=== PATIENT | male | born 1935 | race Caucasian/White ===

== ENCOUNTER 2019-08-12 08:46 | Emergency (ER) | payer MEDICARE, OTHER ==
[~2019-08-12] VITALS: Ht 170.2 cm; Wt 71.4 kg
[~2019-08-12 08:46] MED LIST: ASPI-1264 PO; CHOL100025 PO; FOLI-62 PO; GLYB2.5T4 PO; LOSA50TA3 PO; METO25TA6 PO; NITR0.4T SL; PANT-47 PO; SIMV-42 PO; TICA90TA PO
--- NOTE | 2019-08-12 09:02 | NUR ---
Patient is at CT
[2019-08-12 09:28] LABS: BASOPHILS % (AUTO) 0.3 % (0-1); EOSINOPHILS % (AUTO) 0.7 % (0-6); HEMATOCRIT 45.6 % (42.0-52.0); HEMOGLOBIN 15.3 g/dl (14.0-17.9); LYMPHOCYTES % (AUTO) 18.5 % (21-51); MEAN CORPUSCULAR HEMOGLOBIN 29.6 PG (27.0-31.0); MEAN CORPUSCULAR HGB CONC 33.6 g/dL (33.0-36.5); MEAN CORPUSCULAR VOLUME 88.2 FL (78-98); MONOCYTES # (AUTO) 0.5 X10'3 (0-0.9); MONOCYTES % (AUTO) 10.3 % (2-12); NEUTROPHILS # (AUTO) 3.6 X10'3 (1.8-7.7); NEUTROPHILS % (AUTO) 70.2 % (42-75); PLATELET COUNT 143 X10'3 (140-440); RED BLOOD COUNT 5.17 X10'6 (4.70-6.10); RED CELL DISTRIBUTION WIDTH 15.4 % (11.5-14.5); WHITE BLOOD COUNT 5.1 X10'3 (4.5-11.0)
[2019-08-12 09:46] LABS: PARTIAL THROMBOPLASTIN TIME 28 SECONDS (22-32)
[2019-08-12 09:49] LABS: ALANINE AMINOTRANSFERASE 13 U/L (12-78); ALBUMIN 4.3 G/DL (3.4-5.0); ALBUMIN/GLOBULIN RATIO 1.1 (1.1-1.5); ALKALINE PHOSPHATASE 104 IU/L (46-116); ANION GAP 8 (8-16); ASPARTATE AMINO TRANSFERASE 13 U/L (10-37); BILIRUBIN,TOTAL 0.6 MG/DL (0.1-1.0); BLOOD UREA NITROGEN 21 MG/DL (7-18); CALCIUM 9.8 MG/DL (8.5-10.1); CHLORIDE 103 MMOL/L (99-107); CREATININE 1.05 MG/DL (0.60-1.10); GLUCOSE 240 MG/DL (70-104); POTASSIUM 4.1 MMOL/L (3.5-5.1); SODIUM 138 MMOL/L (135-145); TOTAL CARBON DIOXIDE 27.1 MMOL/L (24-32); TOTAL PROTEIN 8.1 G/DL (6.4-8.2); eGFR 67 ML/MIN
[2019-08-12 09:52] LABS: TROPONIN I < 0.04 NG/ML (0.0-0.05)
[2019-08-12] MEDS ORDERED: metoclopramide 5 mg/ml inj IV ONE (10:05)
[2019-08-12] MEDS ORDERED: MECL-159 PO (10:08)
[2019-08-12 10:31] VITALS: BP 140/76
== END 2019-08-12 10:55 | disposition home or self-care (01) ==
LOC: ER 08:48
DX: H81.10 Benign paroxysmal vertigo, unspecified ear (principal); E78.00 Pure hypercholesterolemia, unspecified; I10 Essential (primary) hypertension; I25.2 Old myocardial infarction; K57.90 Diverticulosis of intestine, part unspecified, without perforation or abscess without bleeding; K21.9 Gastro-esophageal reflux disease without esophagitis; E11.9 Type 2 diabetes mellitus without complications; Z95.1 Presence of aortocoronary bypass graft; Z90.89 Acquired absence of other organs; Z90.49 Acquired absence of other specified parts of digestive tract; Z98.890 Other specified postprocedural states; Z88.8 Allergy status to other drugs, medicaments and biological substances; Z79.82 Long term (current) use of aspirin; Z79.899 Other long term (current) drug therapy
CPT/HCPCS: 36415; 70450; 71045; 80053; 82948; 84484; 85025; 85610; 85730; 93005; 96374; 99285; J2765